=== PATIENT | male | born 1945 | race Caucasian/White ===

== ENCOUNTER → 2018-05-16 | Day surgery (SDC) | payer MEDICARE, MEDICAID ==
[~2018-05-16] VITALS: Ht 167.6 cm; Wt 83.9 kg
[~2018-05-16] MED LIST: ASPI-1159 PO; BACITRACIN 50,000 UNITS/VIAL ONE; BACITRACIN ZINC 15GM TUBE TOP ONE; BETAMETHASONE ACET/BETAMET 30 MG/5 ML VIAL IM ONE; BUPIVACAINE HCL/PF 0.25% (2.5MG/ML) 10ML ONE; CELL2 PO; CLOP75TA16 PO; FENTANYL CITRATE/PF 50MCG/ML 2ML VIAL ONE; GENTAMICIN SULF 40MG/ML 2ML VIAL ONE; GLYCOPYRROLATE 0.2 MG/ML 2ML VIAL ONE; HYDROMORPHONE HCL/PF 2MG/ML CPJ IV PRN; INSU100I7 SQ; LEVVL SQ; LIDOCAINE HCL/PF 1% 10 MG/ML 5ML VIAL ONE; LIP40 PO; METOCLOPRAMIDE HCL 10MG/2ML VIAL ONE; MIDAZOLAM HCL 2 MG/2 ML VIAL ONE; NORMAL SALINE 0.9% 10 ML SYR ONE; ONDANSETRON HCL 4MG/2ML VIAL IV PRN; ONDANSETRON HCL 4MG/2ML VIAL ONE; PRED5TAB48 PO; PROG1 PO; PROPOFOL 200MG/20ML VIAL IV ONE; SODIUM CHLORIDE 0.9% 1,000 ML IV ONE; SODIUM CHLORIDE 0.9% 100 ML ONE; SUCCINYLCHOLINE CHLORIDE 200MG/10ML VIAL IV ONE; VANCOMYCIN HCL 500 MG/VIAL ONE
== END | disposition home or self-care (01) ==
LOC: OR 05:25
PROVIDERS: ATTEND Podiatrist Foot & Ankle Surgery
DX: M86.171 Other acute osteomyelitis, right ankle and foot (principal); T81.89XA Other complications of procedures, not elsewhere classified, initial encounter; Y83.8 Other surgical procedures as the cause of abnormal reaction of the patient, or of later complication, without mention of misadventure at the time of the procedure; I13.10 Hypertensive heart and chronic kidney disease without heart failure, with stage 1 through stage 4 chronic kidney disease, or unspecified chronic kidney disease; E11.22 Type 2 diabetes mellitus with diabetic chronic kidney disease; N18.9 Chronic kidney disease, unspecified; I25.2 Old myocardial infarction; E78.5 Hyperlipidemia, unspecified; Z94.0 Kidney transplant status; Z79.02 Long term (current) use of antithrombotics/antiplatelets; Z79.82 Long term (current) use of aspirin; Z79.4 Long term (current) use of insulin; Z79.899 Other long term (current) drug therapy; Z82.49 Family history of ischemic heart disease and other diseases of the circulatory system; Z83.3 Family history of diabetes mellitus
CPT/HCPCS: 28825; 82962; 87070; 87075; 87077; 87186; 87205; 88304; 88305; 88311; A4216; J0330; J2250; J2405; J2765; J3010; J3370; J3490; J7030; J0702; J1580; J2704; J7050

== ENCOUNTER 2019-12-05 10:42 | Inpatient (IN) | payer MEDICARE, MEDICAID ==
[~2019-12-05] VITALS: Ht 180.3 cm; Wt 79.8 kg
[~2019-12-05 10:42] MED LIST changes: -ASPI-1159 PO; +ASPI-1497 PO; -BACITRACIN 50,000 UNITS/VIAL ONE; -BACITRACIN ZINC 15GM TUBE TOP ONE; -BETAMETHASONE ACET/BETAMET 30 MG/5 ML VIAL IM ONE; -BUPIVACAINE HCL/PF 0.25% (2.5MG/ML) 10ML ONE; -CLOP75TA16 PO; +CLOP75TA4 PO; -FENTANYL CITRATE/PF 50MCG/ML 2ML VIAL ONE; -GENTAMICIN SULF 40MG/ML 2ML VIAL ONE; -GLYCOPYRROLATE 0.2 MG/ML 2ML VIAL ONE; -HYDROMORPHONE HCL/PF 2MG/ML CPJ IV PRN; -LIDOCAINE HCL/PF 1% 10 MG/ML 5ML VIAL ONE; -METOCLOPRAMIDE HCL 10MG/2ML VIAL ONE; -MIDAZOLAM HCL 2 MG/2 ML VIAL ONE; -NORMAL SALINE 0.9% 10 ML SYR ONE; -ONDANSETRON HCL 4MG/2ML VIAL IV PRN; -ONDANSETRON HCL 4MG/2ML VIAL ONE; -PROPOFOL 200MG/20ML VIAL IV ONE; -SODIUM CHLORIDE 0.9% 1,000 ML IV ONE; -SODIUM CHLORIDE 0.9% 100 ML ONE; -SUCCINYLCHOLINE CHLORIDE 200MG/10ML VIAL IV ONE; -VANCOMYCIN HCL 500 MG/VIAL ONE
[2019-12-05 13:15] LABS: HEMATOCRIT 47.1 % (42.0-52.0); HEMOGLOBIN 15.7 g/dL (14.0-18.0); MEAN CORPUSCULAR HEMOGLOBIN 29.8 pg (28.0-32.0); MEAN CORPUSCULAR VOLUME 89.6 fL (80.0-94.0); PLATELET 144 x1000/uL (130-400); RED BLOOD CELL COUNT 5.26 mill/uL (4.7-6.1); RED CELL DISTRIBUTION WIDTH 13.5 % (11.6-14.6)
[2019-12-05 13:19] LABS: CHLORIDE 99 mEq/L (98-107)
[2019-12-05] MEDS ORDERED: ASPIRIN 325MG EC TABLET PO ONE (15:45)
[2019-12-05] MEDS ORDERED: AZITHROMYCIN 500 MG in DEXT 5% WATER 250 ML IV SCH (15:45)
[2019-12-05] MEDS ORDERED: CEFTRIAXONE 1 G PREMIX 50 ML IV ONE (15:45)
[2019-12-05 15:56] LABS: CLARITY URINE CLOUDY (CLEAR); COLOR URINE YELLOW (YELLOW); KETONES URINE TRACE (NEGATIVE); LEUKOCYTE ESTERASE URINE 2+ (NEGATIVE); NITRITE URINE POSITIVE (NEGATIVE); OCCULT BLOOD URINE 3+ (NEGATIVE); PH URINE 5.5 (4.5-8.0); PROTEIN URINE 2+ (NEGATIVE); SPECIFIC GRAVITY URINE 1.022 (1.005-1.030)
[2019-12-05 16:45] LABS: BASOPHILS % 0.2 % (0.0-2.0); EOSINOPHILS % 0.3 % (0.0-5.0); HEMATOCRIT. 42.7 % (42.0-52.0); HEMOGLOBIN. 14.3 g/dL (14.0-18.0); LYMPHOCYTES % 14.1 % (20.0-50.0); MEAN CORPUSCULAR HEMOGLOBIN 29.4 pg (28.0-32.0); MEAN PLATELET VOLUME 8.5 fl (7.4-10.4); MONOCYTES % 8.5 % (2.0-8.0); NEUTROPHILS % 76.9 % (40.0-76.0); PLATELET 160 x1000/uL (130-400); RED BLOOD CELL COUNT 4.85 mill/uL (4.7-6.1); RED CELL DISTRIBUTION WIDTH 13.2 % (11.6-14.6)
[2019-12-05] MEDS ORDERED: SODIUM CHLORIDE 0.9% 250 ML IV ONE (17:00)
[2019-12-05] MEDS ORDERED: MORPHINE SULFATE 4 MG/ML CPJ (NOT FOR IM USE) IV ONE (18:00)
[2019-12-05] MEDS ORDERED: LISINOPRIL 20MG TABLET PO ONE (18:00)
[2019-12-05] MEDS ORDERED: ONDANSETRON HCL 4MG/2ML INJ IV ONE (18:15)
[2019-12-05 21:50] VITALS: BP 191/62
[2019-12-06] VITALS: BP 141/56
[2019-12-06] MEDS ORDERED: CEFTRIAXONE 1 G PREMIX 50 ML IV SCH (02:30)
[2019-12-06] MEDS ORDERED: ACETAMINOPHEN 325MG TABLET PO PRN (02:30)
[2019-12-06] MEDS ORDERED: CLONIDINE 0.2MG TABLET PO PRN (02:30)
[2019-12-06] MEDS ORDERED: DEXTROSE 50% WATER 50ML SYRINGE IV PRN (02:45)
[2019-12-06 04:00] VITALS: BP 164/69
[2019-12-06] MEDS: BLOOD SUGAR DIAGNOSTIC STRIP TEST SCH ×4 (06:17→20:19)
[2019-12-06 06:51] LABS: CHLORIDE 100 mEq/L (98-107)
[2019-12-06 07:13] LABS: BASOPHILS % 0.4 % (0.0-2.0); EOSINOPHILS % 0.2 % (0.0-5.0); HEMATOCRIT. 40.2 % (42.0-52.0); HEMOGLOBIN. 13.6 g/dL (14.0-18.0); LYMPHOCYTES % 16.2 % (20.0-50.0); MEAN CORPUSCULAR HEMOGLOBIN 29.7 pg (28.0-32.0); MEAN CORPUSCULAR VOLUME 87.8 fL (80.0-94.0); MEAN PLATELET VOLUME 8.8 fl (7.4-10.4); MONOCYTES % 9.5 % (2.0-8.0); NEUTROPHILS % 73.7 % (40.0-76.0); PLATELET 137 x1000/uL (130-400); RED BLOOD CELL COUNT 4.58 mill/uL (4.7-6.1); RED CELL DISTRIBUTION WIDTH 13.4 % (11.6-14.6)
[2019-12-06 08:00] VITALS: BP_SYST 129; BP_SYST 149; BP_DIAS 51; BP_DIAS 63
[2019-12-06] MEDS: INSULIN LISPRO 100 UNITS/ML SUBCUT SCH ×4 (08:45→20:20)
[2019-12-06] MEDS: TACROLIMUS 1MG CAPSULE PO SCH ×2 (10:13→10:21)
[2019-12-06] MEDS: CLOPIDOGREL 75MG TABLET PO SCH ×2 (10:13→10:20)
[2019-12-06] MEDS: ASPIRIN 81MG EC TABLET PO SCH ×2 (10:13→10:21)
[2019-12-06] MEDS: SODIUM CHLORIDE 0.9% 1,000 ML IV SCH (10:14)
[2019-12-06] MEDS: MYCOPHENOLATE MOFETIL 250MG CAPSULE PO SCH ×2 (10:20→20:19)
[2019-12-06] MEDS: PREDNISONE 5MG TABLET PO SCH (10:21)
[2019-12-06] MEDS: INSULIN GLARGINE UD 100 UNITS/ML SYR SUBCUT SCH (10:29)
[2019-12-06 12:00] VITALS: BP 132/67
[2019-12-06] MEDS: CEFTRIAXONE 1 G PREMIX 50 ML IV SCH (14:26)
[2019-12-06 16:00] VITALS: BP 131/73
[2019-12-06 20:00] VITALS: BP 136/79
[2019-12-06] MEDS: ATORVASTATIN CALCIUM 40MG TABLET PO SCH (20:19)
[2019-12-07] VITALS: BP 142/76
[2019-12-07] MEDS: SODIUM CHLORIDE 0.9% 1,000 ML IV SCH ×2 (00:11→16:50)
[2019-12-07 04:00] VITALS: BP 130/72
[2019-12-07 06:16] LABS: CHLORIDE 103 mEq/L (98-107)
[2019-12-07 06:29] LABS: BASOPHILS % 0.3 % (0.0-2.0); EOSINOPHILS % 0.4 % (0.0-5.0); HEMATOCRIT. 36.7 % (42.0-52.0); HEMOGLOBIN. 12.5 g/dL (14.0-18.0); LYMPHOCYTES % 20.4 % (20.0-50.0); MEAN CORPUSCULAR HEMOGLOBIN 29.5 pg (28.0-32.0); MEAN PLATELET VOLUME 8.4 fl (7.4-10.4); MONOCYTES % 7.9 % (2.0-8.0); PLATELET 142 x1000/uL (130-400); RED BLOOD CELL COUNT 4.22 mill/uL (4.7-6.1); RED CELL DISTRIBUTION WIDTH 13.3 % (11.6-14.6)
[2019-12-07 06:31] LABS: PHOSPHORUS 1.9 mg/dL (2.5-4.9)
[2019-12-07] MEDS: BLOOD SUGAR DIAGNOSTIC STRIP TEST SCH ×4 (07:40→21:46)
[2019-12-07 08:00] VITALS: BP 129/52
[2019-12-07] MEDS: INSULIN LISPRO 100 UNITS/ML SUBCUT SCH ×4 (08:44→21:46)
[2019-12-07] MEDS ORDERED: POTASSIUM PHOS,M-BASIC-D-BASIC 20 MMOL in DEXT 5% WATER 243.3333 ML IV SCH (09:00)
[2019-12-07] MEDS ORDERED: MAGNESIUM 2 G PREMIX 50 ML IV SCH (09:00)
[2019-12-07] MEDS: PREDNISONE 5MG TABLET PO SCH (10:08)
[2019-12-07] MEDS: MYCOPHENOLATE MOFETIL 250MG CAPSULE PO SCH ×2 (10:08→23:14)
[2019-12-07] MEDS: TACROLIMUS 1MG CAPSULE PO SCH ×2 (10:08→21:46)
[2019-12-07] MEDS: AZITHROMYCIN 500 MG in DEXT 5% WATER 250 ML IV SCH (10:09)
[2019-12-07] MEDS: INSULIN GLARGINE UD 100 UNITS/ML SYR SUBCUT SCH (10:10)
[2019-12-07 12:00] VITALS: BP 159/64
[2019-12-07] MEDS: CEFTRIAXONE 1 G PREMIX 50 ML IV SCH (14:24)
[2019-12-07 16:00] VITALS: BP 153/64
[2019-12-07 20:00] VITALS: BP 146/47
[2019-12-07] MEDS: ATORVASTATIN CALCIUM 40MG TABLET PO SCH (21:46)
[2019-12-08] VITALS: BP 136/50
[2019-12-08 04:00] VITALS: BP 155/65
[2019-12-08] MEDS: BLOOD SUGAR DIAGNOSTIC STRIP TEST SCH ×3 (06:03→17:02)
[2019-12-08 07:17] LABS: CHLORIDE 106 mEq/L (98-107)
[2019-12-08 07:27] LABS: PHOSPHORUS 2.5 mg/dL (2.5-4.9)
[2019-12-08 07:36] LABS: BASOPHILS % 0.4 % (0.0-2.0); EOSINOPHILS % 0.8 % (0.0-5.0); HEMATOCRIT. 35.8 % (42.0-52.0); HEMOGLOBIN. 12.4 g/dL (14.0-18.0); LYMPHOCYTES % 26.2 % (20.0-50.0); MEAN CORPUSCULAR HEMOGLOBIN 30.2 pg (28.0-32.0); MEAN CORPUSCULAR VOLUME 87.2 fL (80.0-94.0); MEAN PLATELET VOLUME 8.4 fl (7.4-10.4); MONOCYTES % 9.9 % (2.0-8.0); NEUTROPHILS % 62.7 % (40.0-76.0); PLATELET 159 x1000/uL (130-400); RED CELL DISTRIBUTION WIDTH 13.3 % (11.6-14.6)
[2019-12-08] MEDS: INSULIN LISPRO 100 UNITS/ML SUBCUT SCH ×3 (07:59→17:35)
[2019-12-08 08:00] VITALS: BP 175/78
[2019-12-08] MEDS: CLOPIDOGREL 75MG TABLET PO SCH (08:31)
[2019-12-08] MEDS: PREDNISONE 5MG TABLET PO SCH (08:31)
[2019-12-08] MEDS: ASPIRIN 81MG EC TABLET PO SCH (08:31)
[2019-12-08] MEDS: TACROLIMUS 1MG CAPSULE PO SCH (08:32)
[2019-12-08] MEDS: MYCOPHENOLATE MOFETIL 250MG CAPSULE PO SCH (08:32)
[2019-12-08] MEDS: AZITHROMYCIN 500 MG in DEXT 5% WATER 250 ML IV SCH (08:50)
[2019-12-08] MEDS ORDERED: POTASSIUM CHLORIDE 20MEQ TABLET SR PO NR (09:44)
[2019-12-08] MEDS ORDERED: LISINOPRIL 20MG TABLET PO SCH (09:45)
[2019-12-08] MEDS: INSULIN GLARGINE UD 100 UNITS/ML SYR SUBCUT SCH (11:03)
[2019-12-08 12:00] VITALS: BP 153/62
[2019-12-08 16:00] VITALS: BP 125/57
[2019-12-08] MEDS: CEFTRIAXONE 1 G PREMIX 50 ML IV SCH (17:02)
[2019-12-08 17:17] VITALS: BP 127/67
== END 2019-12-08 18:20 | disposition home or self-care (01) | DRG 871 ==
LOC: ER 10:42 → 7WST 15:45 → ENRESERV 21:01 → 7WST 12-07 14:58
PROVIDERS: ADMIT Internal Medicine; ATTEND Internal Medicine
DX: A41.9 Sepsis, unspecified organism (principal); J18.9 Pneumonia, unspecified organism; Z94.0 Kidney transplant status; N39.0 Urinary tract infection, site not specified; E11.51 Type 2 diabetes mellitus with diabetic peripheral angiopathy without gangrene; E66.9 Obesity, unspecified; G89.29 Other chronic pain; M54.5 Low back pain; M62.50 Muscle wasting and atrophy, not elsewhere classified, unspecified site; M17.10 Unilateral primary osteoarthritis, unspecified knee; I10 Essential (primary) hypertension; E78.5 Hyperlipidemia, unspecified; Z90.49 Acquired absence of other specified parts of digestive tract; Z91.19 Patient's noncompliance with other medical treatment and regimen; Z68.24 Body mass index [BMI] 24.0-24.9, adult; Z79.82 Long term (current) use of aspirin; Z79.899 Other long term (current) drug therapy; Z79.02 Long term (current) use of antithrombotics/antiplatelets; Z79.52 Long term (current) use of systemic steroids
CPT/HCPCS: 36415; 71045; 80048; 81003; 82962; 83036; 83605; 83735; 83880; 84100; 84484; 85025; 85027; 93005; 96365; 97162; 99285; J0456; J0696; J1815; J2270; J2405; J3475; J3490; J7030; J7050; J7060; J7507; J7512; J7517

== ENCOUNTER 2021-04-08 06:03 | Day surgery (SDC) | payer MEDICARE, MEDICAID ==
[~2021-04-08] VITALS: Ht 167.6 cm; Wt 83.9 kg
[~2021-04-08 06:03] MED LIST changes: +CLOP-31 PO; -CLOP75TA4 PO; +INSASP SUBCUT; -INSU100I7 SQ; -PROG1 PO; +TACR1CAP2 PO
[2021-04-08] MEDS ORDERED: SODIUM CHLORIDE 0.9% 1,000 ML IV SCH (07:30)
[2021-04-08] MEDS ORDERED: BUPIVACAINE HCL 0.5% (5MG/ML) 50ML ONE (07:46)
[2021-04-08] MEDS ORDERED: LIDOCAINE HCL 1% 20ML VIAL (Pyxis) INJ ONE (07:46)
[2021-04-08] MEDS ORDERED: POLYMYXIN B SULFATE 500000 UNITS/VIAL ONE (07:46)
[2021-04-08] MEDS ORDERED: PROPOFOL 200MG/20ML VIAL IV ONE (08:00)
[2021-04-08] MEDS ORDERED: MIDAZOLAM HCL 2 MG/2 ML VIAL ONE (08:00)
[2021-04-08] MEDS ORDERED: SUCCINYLCHOLINE CHLORIDE 200MG/10ML IV ONE (08:02)
[2021-04-08] MEDS ORDERED: VANCOMYCIN HCL 1 GM/VIAL ONE (08:07)
[2021-04-08] MEDS ORDERED: HYDROMORPHONE HCL/PF 2MG/ML (OR) ONE (08:22)
[2021-04-08] MEDS ORDERED: MEPERIDINE HCL/PF 25MG/ML CPJ IV PRN (08:45)
[2021-04-08] MEDS ORDERED: ONDANSETRON HCL 4MG/2ML INJ IV PRN ×2 (08:45→15:45)
[2021-04-08] MEDS ORDERED: LABETALOL 5MG/ML SYR 20 MG/4 ML SYRINGE IV PRN (08:45)
[2021-04-08] MEDS ORDERED: HYDROMORPHONE HCL/PF 2MG/ML CPJ IV PRN (08:45)
[2021-04-08 12:36] VITALS: BP 195/100
== END 2021-04-08 17:00 | disposition home or self-care (01) ==
LOC: OR 06:03
PROVIDERS: ATTEND Podiatrist Foot & Ankle Surgery
DX: M86.172 Other acute osteomyelitis, left ankle and foot (principal); E78.00 Pure hypercholesterolemia, unspecified; I73.9 Peripheral vascular disease, unspecified; I12.9 Hypertensive chronic kidney disease with stage 1 through stage 4 chronic kidney disease, or unspecified chronic kidney disease; E11.22 Type 2 diabetes mellitus with diabetic chronic kidney disease; N18.2 Chronic kidney disease, stage 2 (mild); E66.9 Obesity, unspecified; J44.9 Chronic obstructive pulmonary disease, unspecified; Z79.82 Long term (current) use of aspirin; Z79.4 Long term (current) use of insulin; Z79.899 Other long term (current) drug therapy; Z98.890 Other specified postprocedural states; Z82.49 Family history of ischemic heart disease and other diseases of the circulatory system; Z83.3 Family history of diabetes mellitus
CPT/HCPCS: 28820; 82962; 87070; 87075; 87077; 87186; 87205; 88304; 88311; J0330; J1170; J2175; J2250; J2405; J2704; J3370; J3490

== ENCOUNTER → 2021-06-03 | Day surgery (SDC) | payer MEDICARE, MEDICAID ==
[~2021-06-03] VITALS: Ht 167.6 cm; Wt 86.2 kg
[~2021-06-03] MED LIST changes: +BACITRACIN 15GM TUBE TOP ONE; +BETAMETHASONE ACET/BETAMET 30 MG/5 ML VIAL IM ONE; +BUPIVACAINE HCL/PF 0.5% (5MG/ML) 10ML ONE; -CLOP-31 PO; +CLOP75TA4 PO; +LIDOCAINE HCL 1% 20ML VIAL (Pyxis) INJ ONE; +LISI20TA31 PO; +POLYMYXIN B SULFATE 500000 UNITS/VIAL ONE; +SODIUM CHLORIDE 0.9% 1,000 ML IV SCH; +VANCOMYCIN HCL 1 GM/VIAL ONE
== END | disposition home or self-care (01) ==
LOC: OR 05:09
PROVIDERS: ATTEND Podiatrist Foot & Ankle Surgery
DX: M20.42 Other hammer toe(s) (acquired), left foot (principal); M86.8X7 Other osteomyelitis, ankle and foot; M20.5X2 Other deformities of toe(s) (acquired), left foot; I10 Essential (primary) hypertension; E78.00 Pure hypercholesterolemia, unspecified; E11.9 Type 2 diabetes mellitus without complications; Z79.4 Long term (current) use of insulin; Z79.899 Other long term (current) drug therapy; Z98.890 Other specified postprocedural states
CPT/HCPCS: 28010; 28825; 82962; 87070; 87205; 87426; 88304; 93005; J3370; J3490; J0702

== ENCOUNTER → 2021-08-12 | Day surgery (SDC) | payer MEDICARE, MEDICAID ==
[~2021-08-12] VITALS: Ht 167.6 cm; Wt 86.2 kg
[~2021-08-12] MED LIST changes: -BACITRACIN 15GM TUBE TOP ONE; -BETAMETHASONE ACET/BETAMET 30 MG/5 ML VIAL IM ONE; +CLOP-31 PO; -CLOP75TA4 PO; +GENTAMICIN SULF 40MG/ML 2ML VIAL ONE; -LIDOCAINE HCL 1% 20ML VIAL (Pyxis) INJ ONE; +LIDOCAINE HCL 1% 30ML VIAL (10MG/ML) ONE; -VANCOMYCIN HCL 1 GM/VIAL ONE
== END | disposition home or self-care (01) ==
LOC: OR 05:51
PROVIDERS: ATTEND Podiatrist Foot & Ankle Surgery
DX: M86.8X8 Other osteomyelitis, other site (principal); I10 Essential (primary) hypertension; E11.9 Type 2 diabetes mellitus without complications; E78.00 Pure hypercholesterolemia, unspecified; I73.9 Peripheral vascular disease, unspecified; T81.89XD Other complications of procedures, not elsewhere classified, subsequent encounter; Z79.899 Other long term (current) drug therapy; Z98.890 Other specified postprocedural states; Z79.82 Long term (current) use of aspirin; Z79.84 Long term (current) use of oral hypoglycemic drugs; Z82.49 Family history of ischemic heart disease and other diseases of the circulatory system; Z83.3 Family history of diabetes mellitus
CPT/HCPCS: 11044; 82962; 87070; 87075; 87077; 87186; 87205; 87426; 88305; 88311; J0330; J1580; J2250; J2405; J2704; J3010; J3490; J2765

== ENCOUNTER 2021-08-17 17:13 | Inpatient (IN) | payer MEDICARE, MEDICAID ==
[~2021-08-17] VITALS: Ht 182.9 cm; Wt 85.7 kg
[~2021-08-17 17:13] MED LIST changes: -BUPIVACAINE HCL/PF 0.5% (5MG/ML) 10ML ONE; -GENTAMICIN SULF 40MG/ML 2ML VIAL ONE; -LIDOCAINE HCL 1% 30ML VIAL (10MG/ML) ONE; -POLYMYXIN B SULFATE 500000 UNITS/VIAL ONE; -SODIUM CHLORIDE 0.9% 1,000 ML IV SCH
[2021-08-17] MEDS ORDERED: SODIUM CHLORIDE 0.9% 1000ML BAG (SEPSIS BOLUS) IV ONE (21:45)
[2021-08-17] MEDS ORDERED: CEFTRIAXONE 1 G PREMIX 50 ML IV ONE (22:30)
[2021-08-17] MEDS ORDERED: VANCOMYCIN 1 G PREMIX 200 ML IV ONE (22:30)
[2021-08-17 22:41] LABS: BASOPHILS % 0.7 % (0.0-2.0); EOSINOPHILS % 0.4 % (0.0-5.0); HEMOGLOBIN. 12.4 g/dL (14.0-18.0); LYMPHOCYTES % 25.8 % (20.0-50.0); MEAN CORPUSCULAR HEMOGLOBIN 28.7 pg (28.0-32.0); MEAN CORPUSCULAR VOLUME 87.9 fL (80.0-94.0); MEAN PLATELET VOLUME 7.6 fl (7.4-10.4); MONOCYTES % 11.3 % (2.0-8.0); NEUTROPHILS % 61.8 % (40.0-76.0); PLATELET 330 x1000/uL (130-400); RED BLOOD CELL COUNT 4.33 mill/uL (4.7-6.1); RED CELL DISTRIBUTION WIDTH 13.3 % (11.6-14.6)
[2021-08-17 22:45] LABS: CHLORIDE 97 mEq/L (98-107)
[2021-08-17 22:50] LABS: INR 1.1; PARTIAL THROMBOPLASTIN TIME 33.3 sec (23.4-31.0)
[2021-08-17] MEDS ORDERED: ACETAMINOPHEN 325MG TABLET PO ONE (23:15)
[2021-08-17] MEDS ORDERED: INSULIN REGULAR (HUMULIN R) 300UNITS/3ML VIAL SUBCUT SCH (23:15)
[2021-08-18] VITALS (7 sets, daily range): BP systolic 144–172; BP diastolic 57–83
[2021-08-18 00:01] LABS: CLARITY URINE CLEAR (CLEAR); COLOR URINE YELLOW (YELLOW); KETONES URINE NEGATIVE (NEGATIVE); LEUKOCYTE ESTERASE URINE NEGATIVE (NEGATIVE); NITRITE URINE NEGATIVE (NEGATIVE); OCCULT BLOOD URINE NEGATIVE (NEGATIVE); PH URINE 5.5 (4.5-8.0); PROTEIN URINE NEGATIVE (NEGATIVE); SPECIFIC GRAVITY URINE 1.019 (1.005-1.030)
[2021-08-18] MEDS ORDERED: DEXTROSE 50% WATER 50ML SYRINGE IV PRN (02:30)
[2021-08-18] MEDS ORDERED: TRAMADOL 50MG TABLET PO PRN (02:30)
[2021-08-18] MEDS ORDERED: NALOXONE HCL 0.4 MG/ML 1ML VIAL IV PRN (03:00)
[2021-08-18] MEDS: BLOOD SUGAR DIAGNOSTIC STRIP TEST SCH ×4 (06:21→22:10)
[2021-08-18 08:12] LABS: CHLORIDE 105 mEq/L (98-107)
[2021-08-18] MEDS: INSULIN LISPRO 100 UNITS/ML SUBCUT SCH ×4 (09:02→22:16)
[2021-08-18] MEDS: TACROLIMUS 1MG CAPSULE PO SCH (09:03)
[2021-08-18] MEDS: LISINOPRIL 20MG TABLET PO SCH (09:03)
[2021-08-18] MEDS: CLOPIDOGREL 75MG TABLET PO SCH (09:03)
[2021-08-18 11:18] LABS: BASOPHILS % 0.3 % (0.0-2.0); EOSINOPHILS % 0.8 % (0.0-5.0); HEMATOCRIT. 32.2 % (42.0-52.0); HEMOGLOBIN. 11.1 g/dL (14.0-18.0); LYMPHOCYTES % 18.8 % (20.0-50.0); MEAN CORPUSCULAR HEMOGLOBIN 30.2 pg (28.0-32.0); MEAN CORPUSCULAR VOLUME 87.3 fL (80.0-94.0); MEAN PLATELET VOLUME 7.3 fl (7.4-10.4); MONOCYTES % 9.8 % (2.0-8.0); NEUTROPHILS % 70.3 % (40.0-76.0); PLATELET 283 x1000/uL (130-400); RED BLOOD CELL COUNT 3.69 mill/uL (4.7-6.1); RED CELL DISTRIBUTION WIDTH 13.1 % (11.6-14.6)
[2021-08-18] MEDS: MYCOPHENOLATE MOFETIL 250MG CAPSULE PO SCH (13:28)
[2021-08-18 17:37] LABS: CHLORIDE 102 mEq/L (98-107)
[2021-08-18] MEDS: CEFEPIME 2,000 MG in DEXT 5% WATER 100 ML IV SCH (17:37)
[2021-08-18] MEDS ORDERED: VANCOMYCIN 1250MG in DEXTROSE 5% WATER 250ML IV NR (18:00)
[2021-08-18] MEDS: ATORVASTATIN CALCIUM 40MG TABLET PO SCH (21:04)
[2021-08-18] MEDS ORDERED: INSULIN GLARGINE UD 100 UNITS/ML SYR SUBCUT SCH (22:00)
[2021-08-18] MEDS ORDERED: CEFTRIAXONE 1,000 MG in DEXTROSE 5% WATER 50 ML IV SCH (23:00)
[2021-08-19 01:14] VITALS: BP 142/60
[2021-08-19 04:00] VITALS: BP 154/80
[2021-08-19] MEDS: CEFEPIME 2,000 MG in DEXT 5% WATER 100 ML IV SCH ×2 (04:38→17:24)
[2021-08-19] MEDS: VANCOMYCIN 750 MG PREMIX 150 ML IV SCH ×2 (05:57→19:13)
[2021-08-19] MEDS: BLOOD SUGAR DIAGNOSTIC STRIP TEST SCH ×4 (06:44→21:47)
[2021-08-19 08:00] VITALS: BP 179/72
[2021-08-19 08:42] LABS: BASOPHILS % 0.3 % (0.0-2.0); EOSINOPHILS % 1.6 % (0.0-5.0); HEMATOCRIT. 32.5 % (42.0-52.0); LYMPHOCYTES % 24.1 % (20.0-50.0); MEAN CORPUSCULAR HEMOGLOBIN 29.4 pg (28.0-32.0); MEAN CORPUSCULAR VOLUME 86.9 fL (80.0-94.0); MEAN PLATELET VOLUME 7.4 fl (7.4-10.4); MONOCYTES % 9.4 % (2.0-8.0); NEUTROPHILS % 64.6 % (40.0-76.0); PLATELET 303 x1000/uL (130-400); RED BLOOD CELL COUNT 3.74 mill/uL (4.7-6.1); RED CELL DISTRIBUTION WIDTH 13.3 % (11.6-14.6)
[2021-08-19] MEDS: TACROLIMUS 1MG CAPSULE PO SCH (09:34)
[2021-08-19] MEDS: MYCOPHENOLATE MOFETIL 250MG CAPSULE PO SCH (09:34)
[2021-08-19] MEDS: CLOPIDOGREL 75MG TABLET PO SCH (09:35)
[2021-08-19] MEDS: LISINOPRIL 20MG TABLET PO SCH (09:35)
[2021-08-19] MEDS: INSULIN LISPRO 100 UNITS/ML SUBCUT SCH ×5 (09:37→21:47)
[2021-08-19 12:00] VITALS: BP 164/72
[2021-08-19] MEDS: INSULIN GLARGINE UD 100 UNITS/ML SYR SUBCUT SCH ×2 (12:25→21:46)
[2021-08-19] MEDS: PREDNISONE 5MG TABLET PO SCH (14:14)
[2021-08-19 16:00] VITALS: BP 169/68
[2021-08-19] MEDS: MYCOPHENOLATE MOFETIL 500MG TABLET PO SCH (17:23)
[2021-08-19 20:00] VITALS: BP 154/65
[2021-08-19] MEDS: ATORVASTATIN CALCIUM 40MG TABLET PO SCH (21:45)
[2021-08-20] VITALS: BP 158/79
[2021-08-20 04:00] VITALS: BP 144/67
[2021-08-20] MEDS: CEFEPIME 2,000 MG in DEXT 5% WATER 100 ML IV SCH ×2 (04:41→17:13)
[2021-08-20 05:43] LABS: BASOPHILS % 0.3 % (0.0-2.0); EOSINOPHILS % 0.8 % (0.0-5.0); HEMATOCRIT. 35.4 % (42.0-52.0); HEMOGLOBIN. 11.9 g/dL (14.0-18.0); LYMPHOCYTES % 23.7 % (20.0-50.0); MEAN CORPUSCULAR HEMOGLOBIN 29.1 pg (28.0-32.0); MEAN CORPUSCULAR VOLUME 86.5 fL (80.0-94.0); MEAN PLATELET VOLUME 7.4 fl (7.4-10.4); MONOCYTES % 9.7 % (2.0-8.0); NEUTROPHILS % 65.5 % (40.0-76.0); PLATELET 349 x1000/uL (130-400); RED CELL DISTRIBUTION WIDTH 12.9 % (11.6-14.6)
[2021-08-20 05:48] LABS: CHLORIDE 99 mEq/L (98-107)
[2021-08-20] MEDS: VANCOMYCIN 750 MG PREMIX 150 ML IV SCH (06:42)
[2021-08-20] MEDS: PANTOPRAZOLE 40MG DR TABLET PO SCH (06:42)
[2021-08-20] MEDS: BLOOD SUGAR DIAGNOSTIC STRIP TEST SCH ×4 (06:49→20:50)
[2021-08-20] MEDS: INSULIN LISPRO 100 UNITS/ML SUBCUT SCH ×4 (07:47→21:50)
[2021-08-20 08:00] VITALS: BP 133/58
[2021-08-20] MEDS: TACROLIMUS 1MG CAPSULE PO SCH (09:44)
[2021-08-20] MEDS: MYCOPHENOLATE MOFETIL 500MG TABLET PO SCH ×2 (09:44→17:13)
[2021-08-20] MEDS: CLOPIDOGREL 75MG TABLET PO SCH (09:45)
[2021-08-20] MEDS: LISINOPRIL 20MG TABLET PO SCH (09:45)
[2021-08-20] MEDS: PREDNISONE 5MG TABLET PO SCH (09:45)
[2021-08-20 12:00] VITALS: BP 144/73
[2021-08-20] MEDS: INSULIN GLARGINE UD 100 UNITS/ML SYR SUBCUT SCH ×2 (12:05→22:02)
[2021-08-20] MEDS: VANCOMYCIN 1250MG in DEXTROSE 5% WATER 250ML IV SCH (15:05)
[2021-08-20 16:45] VITALS: BP 149/70
[2021-08-20] MEDS: ATORVASTATIN CALCIUM 40MG TABLET PO SCH (20:50)
[2021-08-21] VITALS: BP 127/69
[2021-08-21] MEDS: VANCOMYCIN 1250MG in DEXTROSE 5% WATER 250ML IV SCH ×2 (01:42→14:37)
[2021-08-21 04:09] VITALS: BP 131/62
[2021-08-21] MEDS: CEFEPIME 2,000 MG in DEXT 5% WATER 100 ML IV SCH ×2 (05:55→17:31)
[2021-08-21] MEDS: PANTOPRAZOLE 40MG DR TABLET PO SCH (05:56)
[2021-08-21] MEDS: BLOOD SUGAR DIAGNOSTIC STRIP TEST SCH ×4 (05:56→20:54)
[2021-08-21 08:00] VITALS: BP 128/56
[2021-08-21] MEDS: PREDNISONE 5MG TABLET PO SCH (09:34)
[2021-08-21] MEDS: LISINOPRIL 20MG TABLET PO SCH (09:34)
[2021-08-21] MEDS: CLOPIDOGREL 75MG TABLET PO SCH (09:35)
[2021-08-21] MEDS: TACROLIMUS 1MG CAPSULE PO SCH (09:35)
[2021-08-21] MEDS: MYCOPHENOLATE MOFETIL 500MG TABLET PO SCH ×2 (09:35→17:47)
[2021-08-21] MEDS: INSULIN LISPRO 100 UNITS/ML SUBCUT SCH ×4 (09:35→20:56)
[2021-08-21] MEDS: INSULIN GLARGINE UD 100 UNITS/ML SYR SUBCUT SCH ×2 (09:36→22:36)
[2021-08-21 12:00] VITALS: BP 147/72
[2021-08-21 16:00] VITALS: BP 126/62
[2021-08-21 20:00] VITALS: BP 155/69
[2021-08-21] MEDS: ATORVASTATIN CALCIUM 40MG TABLET PO SCH (20:54)
[2021-08-22] VITALS: BP 149/68
[2021-08-22] MEDS: VANCOMYCIN 1250MG in DEXTROSE 5% WATER 250ML IV SCH (01:24)
[2021-08-22 04:00] VITALS: BP 141/65
[2021-08-22] MEDS: BLOOD SUGAR DIAGNOSTIC STRIP TEST SCH ×4 (06:12→21:21)
[2021-08-22] MEDS: CEFEPIME 2,000 MG in DEXT 5% WATER 100 ML IV SCH (06:13)
[2021-08-22 06:38] LABS: CHLORIDE 98 mEq/L (98-107)
[2021-08-22 06:43] LABS: BASOPHILS % 0.4 % (0.0-2.0); EOSINOPHILS % 0.9 % (0.0-5.0); HEMATOCRIT. 34.3 % (42.0-52.0); HEMOGLOBIN. 11.8 g/dL (14.0-18.0); MEAN CORPUSCULAR HEMOGLOBIN 29.4 pg (28.0-32.0); MEAN CORPUSCULAR VOLUME 85.3 fL (80.0-94.0); MEAN PLATELET VOLUME 7.3 fl (7.4-10.4); MONOCYTES % 9.5 % (2.0-8.0); NEUTROPHILS % 65.2 % (40.0-76.0); PLATELET 356 x1000/uL (130-400); RED BLOOD CELL COUNT 4.02 mill/uL (4.7-6.1); RED CELL DISTRIBUTION WIDTH 13.2 % (11.6-14.6)
[2021-08-22 06:49] LABS: PHOSPHORUS 2.5 mg/dL (2.5-4.9)
[2021-08-22] MEDS: INSULIN LISPRO 100 UNITS/ML SUBCUT SCH ×4 (07:50→21:43)
[2021-08-22 08:00] VITALS: BP 135/58
[2021-08-22] MEDS ORDERED: ASPIRIN 81MG EC TABLET PO SCH (09:00)
[2021-08-22] MEDS ORDERED: HYDROCODONE/ACETAMINOPHEN 5/325MG TABLET PO PRN (10:30)
[2021-08-22] MEDS: CLOPIDOGREL 75MG TABLET PO SCH (10:59)
[2021-08-22] MEDS: PANTOPRAZOLE 40MG DR TABLET PO SCH (10:59)
[2021-08-22] MEDS: MYCOPHENOLATE MOFETIL 500MG TABLET PO SCH ×2 (10:59→17:15)
[2021-08-22] MEDS: LISINOPRIL 20MG TABLET PO SCH (10:59)
[2021-08-22] MEDS: TACROLIMUS 1MG CAPSULE PO SCH (10:59)
[2021-08-22] MEDS: PREDNISONE 5MG TABLET PO SCH (11:01)
[2021-08-22] MEDS: INSULIN GLARGINE UD 100 UNITS/ML SYR SUBCUT SCH ×2 (11:02→21:47)
[2021-08-22 12:00] VITALS: BP 155/67
[2021-08-22] MEDS ORDERED: VANCOMYCIN 1 G PREMIX 200 ML IV SCH (12:00)
[2021-08-22] MEDS: PIPERACILLIN/TAZOBACTAM 3.375 G in DEXTROSE 5% WATER 50 ML IV SCH ×2 (15:24→21:39)
[2021-08-22 16:00] VITALS: BP 140/63
[2021-08-22] MEDS: ACETAMINOPHEN 325MG TABLET PO PRN (17:15)
[2021-08-22 20:00] VITALS: BP 136/56
[2021-08-22] MEDS: VANCOMYCIN 1 G PREMIX 200 ML IV SCH (20:55)
[2021-08-22] MEDS: ATORVASTATIN CALCIUM 40MG TABLET PO SCH (21:39)
[2021-08-23] VITALS: BP 149/72
[2021-08-23 04:00] VITALS: BP 149/78
[2021-08-23] MEDS: VANCOMYCIN 1 G PREMIX 200 ML IV SCH (04:30)
[2021-08-23] MEDS: BLOOD SUGAR DIAGNOSTIC STRIP TEST SCH ×4 (06:37→21:25)
[2021-08-23] MEDS: PIPERACILLIN/TAZOBACTAM 3.375 G in DEXTROSE 5% WATER 50 ML IV SCH ×3 (06:38→21:35)
[2021-08-23] MEDS: PANTOPRAZOLE 40MG DR TABLET PO SCH (06:38)
[2021-08-23] MEDS: INSULIN LISPRO 100 UNITS/ML SUBCUT SCH ×4 (07:47→21:36)
[2021-08-23 08:00] VITALS: BP_SYST 142; BP_SYST 153; BP_DIAS 68; BP_DIAS 72
[2021-08-23] MEDS: LISINOPRIL 20MG TABLET PO SCH (08:40)
[2021-08-23] MEDS: MYCOPHENOLATE MOFETIL 500MG TABLET PO SCH ×2 (08:41→17:07)
[2021-08-23] MEDS: TACROLIMUS 1MG CAPSULE PO SCH (08:41)
[2021-08-23] MEDS: PREDNISONE 5MG TABLET PO SCH (08:41)
[2021-08-23] MEDS: CLOPIDOGREL 75MG TABLET PO SCH (08:41)
[2021-08-23 09:54] LABS: CHLORIDE 100 mEq/L (98-107)
[2021-08-23] MEDS: INSULIN GLARGINE UD 100 UNITS/ML SYR SUBCUT SCH ×2 (10:30→21:37)
[2021-08-23 12:00] VITALS: BP 142/72
[2021-08-23 16:00] VITALS: BP 133/71
[2021-08-23] MEDS: ACETAMINOPHEN 325MG TABLET PO PRN (17:06)
[2021-08-23] MEDS: VANCOMYCIN 1250MG in DEXTROSE 5% WATER 250ML IV SCH (18:14)
[2021-08-23 20:00] VITALS: BP 123/57
[2021-08-23] MEDS: ATORVASTATIN CALCIUM 40MG TABLET PO SCH (21:35)
[2021-08-24] VITALS: BP 152/67
[2021-08-24 04:00] VITALS: BP 150/73
[2021-08-24] MEDS: VANCOMYCIN 1250MG in DEXTROSE 5% WATER 250ML IV SCH (06:27)
[2021-08-24] MEDS: PIPERACILLIN/TAZOBACTAM 3.375 G in DEXTROSE 5% WATER 50 ML IV SCH (06:27)
[2021-08-24] MEDS: PANTOPRAZOLE 40MG DR TABLET PO SCH (06:28)
[2021-08-24] MEDS: BLOOD SUGAR DIAGNOSTIC STRIP TEST SCH (06:28)
[2021-08-24] MEDS: INSULIN LISPRO 100 UNITS/ML SUBCUT SCH (07:34)
[2021-08-24 08:00] VITALS: BP 159/73
[2021-08-24] MEDS: MYCOPHENOLATE MOFETIL 500MG TABLET PO SCH (09:49)
[2021-08-24] MEDS: PREDNISONE 5MG TABLET PO SCH (09:50)
[2021-08-24] MEDS: CLOPIDOGREL 75MG TABLET PO SCH (09:50)
[2021-08-24] MEDS: LISINOPRIL 20MG TABLET PO SCH (09:50)
[2021-08-24] MEDS: TACROLIMUS 1MG CAPSULE PO SCH (09:55)
[2021-08-24] MEDS: INSULIN GLARGINE UD 100 UNITS/ML SYR SUBCUT SCH (09:56)
[2021-08-24 10:45] VITALS: BP 142/59
[2021-08-25] MEDS ORDERED: FAMOTIDINE 20MG TABLET PO SCH (09:00)
== END 2021-08-24 11:05 | disposition home or self-care (01) | DRG 863 ==
LOC: ER 17:13 → ENRESERV 23:42 → 6WST 08-18 01:00
PROVIDERS: ADMIT Internal Medicine; ATTEND Internal Medicine
DX: T81.40XA Infection following a procedure, unspecified, initial encounter (principal); Z94.0 Kidney transplant status; L03.116 Cellulitis of left lower limb; N39.0 Urinary tract infection, site not specified; E11.51 Type 2 diabetes mellitus with diabetic peripheral angiopathy without gangrene; E11.42 Type 2 diabetes mellitus with diabetic polyneuropathy; E78.00 Pure hypercholesterolemia, unspecified; I10 Essential (primary) hypertension; G89.29 Other chronic pain; M54.50 Low back pain, unspecified; B96.20 Unspecified Escherichia coli [E. coli] as the cause of diseases classified elsewhere; J44.9 Chronic obstructive pulmonary disease, unspecified; Y83.8 Other surgical procedures as the cause of abnormal reaction of the patient, or of later complication, without mention of misadventure at the time of the procedure; M17.10 Unilateral primary osteoarthritis, unspecified knee; Z79.82 Long term (current) use of aspirin; Z79.899 Other long term (current) drug therapy; Z79.4 Long term (current) use of insulin; Z82.49 Family history of ischemic heart disease and other diseases of the circulatory system; Y92.89 Other specified places as the place of occurrence of the external cause; Z89.422 Acquired absence of other left toe(s)
CPT/HCPCS: 36415; 71045; 73620; 73721; 80048; 80053; 80197; 80202; 81003; 82962; 83036; 83605; 83735; 83880; 84100; 84145; 84484; 85025; 85651; 86140; 87077; 87186; 93005; 93923; 93970; 97162; 99285; C1893; J0692; J0696; J1815; J2543; J3370; J7030; J7040; J7060; J7507; J7512; J7517

== ENCOUNTER → 2021-10-27 | Day surgery (SDC) | payer MEDICARE, MEDICAID ==
[~2021-10-27] VITALS: Ht 167.6 cm; Wt 72.5 kg
[~2021-10-27] MED LIST changes: +ACETAMINOPHEN 325MG TABLET PO PRN; +ATROPINE SULFATE 1MG/10ML SYR IV PRN; +FENTANYL CITRATE/PF 50MCG/ML 2ML VIAL ONE; +HEPARIN SODIUM 1,000 UNIT/1ML VIAL IV ONE; +IODIXANOL 320MG/ML 100 ML BOTTLE IV ONE; +IOHEXOL-300 100 ML BOTTLE ONE; +LIDOCAINE HCL 1% 20ML VIAL (Pyxis) INJ ONE; +MIDAZOLAM HCL 2 MG/2 ML VIAL ONE; +ONDANSETRON HCL 4MG/2ML INJ IV PRN
== END | disposition home or self-care (01) ==
LOC: CCL 06:11
PROVIDERS: ATTEND Specialist
DX: R94.39 Abnormal result of other cardiovascular function study (principal); I25.10 Atherosclerotic heart disease of native coronary artery without angina pectoris; I10 Essential (primary) hypertension; E11.9 Type 2 diabetes mellitus without complications; I73.9 Peripheral vascular disease, unspecified; D84.821 Immunodeficiency due to drugs; Z79.82 Long term (current) use of aspirin; Z79.4 Long term (current) use of insulin; Z79.899 Other long term (current) drug therapy; Z95.5 Presence of coronary angioplasty implant and graft; Z89.511 Acquired absence of right leg below knee; Z98.890 Other specified postprocedural states
CPT/HCPCS: 82962; 93458; C1760; C1769; C1887; C1893; C1894; J1644; J2250; J3010; J3490; Q9967

== ENCOUNTER 2021-11-21 09:14 | Inpatient (IN) | payer MEDICARE, MEDICAID ==
[~2021-11-21] VITALS: Ht 172.7 cm; Wt 71.5 kg
[~2021-11-21 09:14] MED LIST changes: -ACETAMINOPHEN 325MG TABLET PO PRN; -ATROPINE SULFATE 1MG/10ML SYR IV PRN; -FENTANYL CITRATE/PF 50MCG/ML 2ML VIAL ONE; -HEPARIN SODIUM 1,000 UNIT/1ML VIAL IV ONE; -IODIXANOL 320MG/ML 100 ML BOTTLE IV ONE; -IOHEXOL-300 100 ML BOTTLE ONE; -LIDOCAINE HCL 1% 20ML VIAL (Pyxis) INJ ONE; -MIDAZOLAM HCL 2 MG/2 ML VIAL ONE; -ONDANSETRON HCL 4MG/2ML INJ IV PRN
[2021-11-21 12:44] LABS: BASOPHILS % 0.3 % (0.0-2.0); EOSINOPHILS % 0.2 % (0.0-5.0); HEMATOCRIT. 32.5 % (42.0-52.0); HEMOGLOBIN. 10.6 g/dL (14.0-18.0); LYMPHOCYTES % 15.2 % (20.0-50.0); MEAN CORPUSCULAR VOLUME 76.7 fL (80.0-94.0); MEAN PLATELET VOLUME 6.2 fl (7.4-10.4); MONOCYTES % 7.5 % (2.0-8.0); NEUTROPHILS % 76.8 % (40.0-76.0); PLATELET 597 x1000/uL (130-400); RED BLOOD CELL COUNT 4.24 mill/uL (4.7-6.1); RED CELL DISTRIBUTION WIDTH 16.1 % (11.6-14.6)
[2021-11-21 12:52] LABS: CHLORIDE 77 mEq/L (98-107)
[2021-11-21 18:14] LABS: CLARITY URINE CLEAR (CLEAR); COLOR URINE DARK YELLOW (YELLOW); KETONES URINE TRACE (NEGATIVE); LEUKOCYTE ESTERASE URINE NEGATIVE (NEGATIVE); NITRITE URINE NEGATIVE (NEGATIVE); OCCULT BLOOD URINE NEGATIVE (NEGATIVE); PH URINE 6.5 (4.5-8.0); PROTEIN URINE 1+ (NEGATIVE)
[2021-11-21] MEDS ORDERED: DEXTROSE 50% WATER 50ML SYRINGE IV PRN (18:15)
[2021-11-21 18:16] LABS: CHLORIDE 76 mEq/L (98-107)
[2021-11-21] MEDS: INSULIN LISPRO 100 UNITS/ML SUBCUT SCH ×2 (18:20→21:30)
[2021-11-21] MEDS: BLOOD SUGAR DIAGNOSTIC STRIP TEST SCH (21:30)
[2021-11-21] MEDS: INSULIN GLARGINE UD 100 UNITS/ML SYR SUBCUT SCH (22:23)
[2021-11-22 00:50] VITALS: BP 125/51
[2021-11-22] MEDS ORDERED: CLONIDINE 0.1MG TABLET PO PRN (01:15)
[2021-11-22] MEDS ORDERED: DOCUSATE SODIUM 100MG CAPSULE PO PRN (01:15)
[2021-11-22] MEDS ORDERED: ONDANSETRON HCL 4MG/2ML INJ IV PRN (01:15)
[2021-11-22] MEDS ORDERED: MAGNESIUM/ALUMINUM HYDROXIDE/SIMETHICONE 30ML UDC PO PRN (01:15)
[2021-11-22] MEDS: SODIUM CHLORIDE 0.9% 1,000 ML IV SCH ×2 (01:24→14:52)
[2021-11-22 04:00] VITALS: BP 131/61
[2021-11-22] MEDS: BLOOD SUGAR DIAGNOSTIC STRIP TEST SCH ×4 (06:55→21:49)
[2021-11-22 08:00] VITALS: BP 123/58
[2021-11-22] MEDS: TACROLIMUS 1MG CAPSULE PO SCH ×2 (08:57→21:49)
[2021-11-22] MEDS: MYCOPHENOLATE MOFETIL 250MG CAPSULE PO SCH ×2 (08:57→21:49)
[2021-11-22] MEDS: INSULIN LISPRO 100 UNITS/ML SUBCUT SCH ×4 (08:58→21:00)
[2021-11-22] MEDS: ENOXAPARIN 40MG/0.4ML SYR SUBCUT SCH (09:02)
[2021-11-22] MEDS: INSULIN GLARGINE UD 100 UNITS/ML SYR SUBCUT SCH ×2 (11:33→21:51)
[2021-11-22 11:50] LABS: BASOPHILS % 0.5 % (0.0-2.0); EOSINOPHILS % 1.1 % (0.0-5.0); HEMATOCRIT. 28.6 % (42.0-52.0); HEMOGLOBIN. 9.7 g/dL (14.0-18.0); LYMPHOCYTES % 23.3 % (20.0-50.0); MEAN CORPUSCULAR HEMOGLOBIN 25.9 pg (28.0-32.0); MEAN CORPUSCULAR VOLUME 76.4 fL (80.0-94.0); MEAN PLATELET VOLUME 6.2 fl (7.4-10.4); NEUTROPHILS % 64.1 % (40.0-76.0); PLATELET 505 x1000/uL (130-400); RED BLOOD CELL COUNT 3.74 mill/uL (4.7-6.1); RED CELL DISTRIBUTION WIDTH 16.6 % (11.6-14.6)
[2021-11-22 12:00] VITALS: BP 154/72
[2021-11-22 12:03] LABS: CHLORIDE 82 mEq/L (98-107)
[2021-11-22 12:08] LABS: PHOSPHORUS 3.1 mg/dL (2.5-4.9)
[2021-11-22 16:00] VITALS: BP 127/63
[2021-11-22 20:00] VITALS: BP 140/57
[2021-11-23] VITALS: BP 146/55
[2021-11-23 04:00] VITALS: BP 160/74
[2021-11-23] MEDS: SODIUM CHLORIDE 0.9% 1,000 ML IV SCH ×2 (04:51→17:46)
[2021-11-23 06:48] LABS: BASOPHILS % 0.7 % (0.0-2.0); EOSINOPHILS % 1.7 % (0.0-5.0); HEMATOCRIT. 28.2 % (42.0-52.0); HEMOGLOBIN. 9.7 g/dL (14.0-18.0); LYMPHOCYTES % 26.6 % (20.0-50.0); MEAN CORPUSCULAR HEMOGLOBIN 26.1 pg (28.0-32.0); MEAN CORPUSCULAR VOLUME 75.8 fL (80.0-94.0); MEAN PLATELET VOLUME 6.3 fl (7.4-10.4); MONOCYTES % 11.6 % (2.0-8.0); NEUTROPHILS % 59.4 % (40.0-76.0); PLATELET 442 x1000/uL (130-400); RED BLOOD CELL COUNT 3.72 mill/uL (4.7-6.1); RED CELL DISTRIBUTION WIDTH 15.9 % (11.6-14.6)
[2021-11-23 07:09] LABS: CHLORIDE 90 mEq/L (98-107)
[2021-11-23] MEDS: BLOOD SUGAR DIAGNOSTIC STRIP TEST SCH ×4 (07:20→21:33)
[2021-11-23 07:24] LABS: PHOSPHORUS 3.1 mg/dL (2.5-4.9)
[2021-11-23 07:28] LABS: T4 FREE 1.35 ng/dL (0.76-1.46)
[2021-11-23] MEDS: INSULIN LISPRO 100 UNITS/ML SUBCUT SCH ×4 (07:50→21:35)
[2021-11-23 08:00] VITALS: BP 144/69
[2021-11-23] MEDS: MYCOPHENOLATE MOFETIL 250MG CAPSULE PO SCH ×2 (09:58→21:33)
[2021-11-23] MEDS: TACROLIMUS 1MG CAPSULE PO SCH ×2 (09:58→21:33)
[2021-11-23] MEDS: ENOXAPARIN 40MG/0.4ML SYR SUBCUT SCH (09:59)
[2021-11-23] MEDS: INSULIN GLARGINE UD 100 UNITS/ML SYR SUBCUT SCH ×2 (10:01→21:36)
[2021-11-23 12:00] VITALS: BP 135/72
[2021-11-23] MEDS: AMLODIPINE 5MG TABLET PO SCH (15:05)
[2021-11-23 16:00] VITALS: BP 129/77
[2021-11-23 20:00] VITALS: BP 125/47
[2021-11-24 00:13] VITALS: BP 149/63
[2021-11-24 04:00] VITALS: BP 166/75
[2021-11-24 06:33] LABS: BASOPHILS % 0.7 % (0.0-2.0); EOSINOPHILS % 1.9 % (0.0-5.0); HEMATOCRIT. 28.8 % (42.0-52.0); HEMOGLOBIN. 9.9 g/dL (14.0-18.0); LYMPHOCYTES % 37.1 % (20.0-50.0); MEAN CORPUSCULAR HEMOGLOBIN 26.1 pg (28.0-32.0); MEAN CORPUSCULAR VOLUME 76.2 fL (80.0-94.0); MEAN PLATELET VOLUME 6.3 fl (7.4-10.4); MONOCYTES % 10.6 % (2.0-8.0); NEUTROPHILS % 49.7 % (40.0-76.0); PLATELET 420 x1000/uL (130-400); RED BLOOD CELL COUNT 3.79 mill/uL (4.7-6.1); RED CELL DISTRIBUTION WIDTH 16.2 % (11.6-14.6)
[2021-11-24 06:49] LABS: CHLORIDE 92 mEq/L (98-107)
[2021-11-24] MEDS: BLOOD SUGAR DIAGNOSTIC STRIP TEST SCH ×4 (07:41→21:35)
[2021-11-24] MEDS: INSULIN LISPRO 100 UNITS/ML SUBCUT SCH ×4 (07:41→21:36)
[2021-11-24 08:00] VITALS: BP 139/53
[2021-11-24] MEDS: AMLODIPINE 5MG TABLET PO SCH (09:18)
[2021-11-24] MEDS: MYCOPHENOLATE MOFETIL 250MG CAPSULE PO SCH ×2 (09:18→21:30)
[2021-11-24] MEDS: TACROLIMUS 1MG CAPSULE PO SCH ×2 (09:19→21:31)
[2021-11-24] MEDS: ENOXAPARIN 40MG/0.4ML SYR SUBCUT SCH (09:19)
[2021-11-24] MEDS: INSULIN GLARGINE UD 100 UNITS/ML SYR SUBCUT SCH ×2 (09:19→21:35)
[2021-11-24] MEDS ORDERED: MAGNESIUM 2 G PREMIX 50 ML IV NR (11:00)
[2021-11-24 12:00] VITALS: BP 149/61
[2021-11-24 16:00] VITALS: BP 134/62
[2021-11-24 20:00] VITALS: BP 132/63
[2021-11-24] MEDS: ACETAMINOPHEN 325MG TABLET PO PRN (21:31)
[2021-11-25] VITALS: BP 135/64
[2021-11-25 04:00] VITALS: BP 145/64
[2021-11-25 06:55] LABS: HEMATOCRIT. 27.1 % (42.0-52.0); HEMOGLOBIN. 9.1 g/dL (14.0-18.0); MEAN CORPUSCULAR HEMOGLOBIN 25.8 pg (28.0-32.0); MEAN CORPUSCULAR VOLUME 76.5 fL (80.0-94.0); MEAN PLATELET VOLUME 6.2 fl (7.4-10.4); PLATELET 417 x1000/uL (130-400); RED BLOOD CELL COUNT 3.54 mill/uL (4.7-6.1); RED CELL DISTRIBUTION WIDTH 16.7 % (11.6-14.6)
[2021-11-25] MEDS: INSULIN LISPRO 100 UNITS/ML SUBCUT SCH ×4 (07:36→23:29)
[2021-11-25] MEDS: BLOOD SUGAR DIAGNOSTIC STRIP TEST SCH ×4 (07:36→21:00)
[2021-11-25 07:58] LABS: CHLORIDE 89 mEq/L (98-107)
[2021-11-25 08:00] VITALS: BP 115/74
[2021-11-25 08:05] LABS: PHOSPHORUS 3.1 mg/dL (2.5-4.9)
[2021-11-25] MEDS: TACROLIMUS 1MG CAPSULE PO SCH ×2 (08:51→20:47)
[2021-11-25] MEDS: LEVOTHYROXINE SODIUM 50MCG TABLET PO SCH (08:52)
[2021-11-25] MEDS: MYCOPHENOLATE MOFETIL 250MG CAPSULE PO SCH ×2 (08:52→20:45)
[2021-11-25] MEDS: AMLODIPINE 5MG TABLET PO SCH (08:52)
[2021-11-25] MEDS: ENOXAPARIN 40MG/0.4ML SYR SUBCUT SCH (08:53)
[2021-11-25] MEDS: INSULIN GLARGINE UD 100 UNITS/ML SYR SUBCUT SCH ×2 (08:54→23:28)
[2021-11-25 12:00] VITALS: BP 136/54
[2021-11-25] MEDS: SODIUM CHLORIDE 0.9% 1,000 ML IV SCH ×3 (12:31→23:30)
[2021-11-25 14:29] LABS: PLATELET ESTIMATE INCREASED
[2021-11-25 16:00] VITALS: BP 155/62
[2021-11-25] MEDS ORDERED: VANCOMYCIN 1.25GM PMX (XELLIA) 250 ML IV SCH (16:00)
[2021-11-25 20:00] VITALS: BP 128/59
[2021-11-25] MEDS: HYDROCORTISONE SOD SUCCINATE 100 MG/2 ML VIAL IV SCH (20:45)
[2021-11-26] VITALS: BP 137/60
[2021-11-26 04:00] VITALS: BP 142/67
[2021-11-26 06:02] LABS: BASOPHILS % 0.2 % (0.0-2.0); HEMATOCRIT. 28.4 % (42.0-52.0); HEMOGLOBIN. 9.5 g/dL (14.0-18.0); LYMPHOCYTES % 21.4 % (20.0-50.0); MEAN CORPUSCULAR HEMOGLOBIN 25.8 pg (28.0-32.0); MEAN CORPUSCULAR VOLUME 77.3 fL (80.0-94.0); MEAN PLATELET VOLUME 6.4 fl (7.4-10.4); NEUTROPHILS % 75.4 % (40.0-76.0); PLATELET 367 x1000/uL (130-400); RED BLOOD CELL COUNT 3.67 mill/uL (4.7-6.1); RED CELL DISTRIBUTION WIDTH 16.7 % (11.6-14.6)
[2021-11-26 06:27] LABS: CHLORIDE 97 mEq/L (98-107)
[2021-11-26] MEDS: SODIUM CHLORIDE 0.9% 1,000 ML IV SCH ×2 (06:27→18:17)
[2021-11-26] MEDS: VANCOMYCIN 750MG PREMIX 150 ML IV SCH ×2 (06:30→18:17)
[2021-11-26] MEDS: HYDROCORTISONE SOD SUCCINATE 100 MG/2 ML VIAL IV SCH ×3 (06:30→21:23)
[2021-11-26] MEDS: LEVOTHYROXINE SODIUM 50MCG TABLET PO SCH (06:49)
[2021-11-26] MEDS: BLOOD SUGAR DIAGNOSTIC STRIP TEST SCH ×4 (06:49→20:47)
[2021-11-26] MEDS ORDERED: INSULIN LISPRO 100 UNITS/ML SUBCUT SCH ×2 (07:20→17:20)
[2021-11-26] MEDS: INSULIN LISPRO 100 UNITS/ML SUBCUT SCH ×5 (07:20→17:20)
[2021-11-26 08:00] VITALS: BP 129/52
[2021-11-26] MEDS ORDERED: SODIUM CHLORIDE 1000MG TABLET PO SCH (09:00)
[2021-11-26] MEDS: ENOXAPARIN 40MG/0.4ML SYR SUBCUT SCH (09:16)
[2021-11-26] MEDS: AMLODIPINE 5MG TABLET PO SCH (09:16)
[2021-11-26] MEDS: MYCOPHENOLATE MOFETIL 250MG CAPSULE PO SCH ×2 (09:16→20:47)
[2021-11-26] MEDS: TACROLIMUS 1MG CAPSULE PO SCH ×2 (09:17→20:47)
[2021-11-26 12:00] VITALS: BP 149/73
[2021-11-26 12:52] LABS: HEPATITIS B SURFACE ANTIGEN NEGATIVE
[2021-11-26] MEDS: ACETAMINOPHEN 325MG TABLET PO PRN (14:57)
[2021-11-26 16:00] VITALS: BP 149/65
[2021-11-26] MEDS: INSULIN LISPRO (LOW DOSE) 100 UNITS/ML SUBCUT SCH (18:16)
[2021-11-26 20:00] VITALS: BP 142/69
[2021-11-26] MEDS: INSULIN GLARGINE UD 100 UNITS/ML SYR SUBCUT SCH (21:27)
[2021-11-26] MEDS ORDERED: INSULIN GLARGINE UD 100 UNITS/ML SYR SUBCUT SCH (22:00)
[2021-11-27] VITALS: BP 136/70
[2021-11-27] MEDS: SODIUM CHLORIDE 0.9% 1,000 ML IV SCH ×3 (01:44→22:09)
[2021-11-27 03:38] VITALS: BP 125/62
[2021-11-27 05:51] LABS: BASOPHILS % 0.1 % (0.0-2.0); HEMOGLOBIN. 8.7 g/dL (14.0-18.0); LYMPHOCYTES % 20.8 % (20.0-50.0); MEAN CORPUSCULAR HEMOGLOBIN 25.8 pg (28.0-32.0); MEAN CORPUSCULAR VOLUME 77.1 fL (80.0-94.0); MEAN PLATELET VOLUME 6.4 fl (7.4-10.4); MONOCYTES % 5.6 % (2.0-8.0); NEUTROPHILS % 73.5 % (40.0-76.0); PLATELET 334 x1000/uL (130-400); RED BLOOD CELL COUNT 3.37 mill/uL (4.7-6.1); RED CELL DISTRIBUTION WIDTH 16.4 % (11.6-14.6)
[2021-11-27 06:19] LABS: CHLORIDE 99 mEq/L (98-107)
[2021-11-27] MEDS: VANCOMYCIN 750MG PREMIX 150 ML IV SCH (06:21)
[2021-11-27] MEDS: LEVOTHYROXINE SODIUM 50MCG TABLET PO SCH (06:21)
[2021-11-27 06:26] LABS: VANCOMYCIN TROUGH 9.5 ug/mL (5.0-10.0)
[2021-11-27] MEDS: BLOOD SUGAR DIAGNOSTIC STRIP TEST SCH ×4 (06:33→21:00)
[2021-11-27 08:00] VITALS: BP 138/66
[2021-11-27] MEDS ORDERED: IOHEXOL-350 100 ML BOTTLE ONE (09:32)
[2021-11-27] MEDS: AMLODIPINE 5MG TABLET PO SCH (09:32)
[2021-11-27] MEDS: MYCOPHENOLATE MOFETIL 250MG CAPSULE PO SCH ×2 (09:32→22:08)
[2021-11-27] MEDS: TACROLIMUS 1MG CAPSULE PO SCH ×2 (09:32→22:08)
[2021-11-27] MEDS: ENOXAPARIN 40MG/0.4ML SYR SUBCUT SCH (09:33)
[2021-11-27] MEDS: PREDNISONE 5MG TABLET PO SCH (09:35)
[2021-11-27] MEDS: INSULIN LISPRO (LOW DOSE) 100 UNITS/ML SUBCUT SCH ×3 (09:39→17:20)
[2021-11-27] MEDS: INSULIN LISPRO 100 UNITS/ML SUBCUT SCH ×3 (09:40→18:34)
[2021-11-27] MEDS ORDERED: MAGNESIUM 2 G PREMIX 50 ML IV SCH (10:00)
[2021-11-27 12:00] VITALS: BP 115/52
[2021-11-27 13:06] LABS: THYROID PEROXIDASE ANTIBODY < 8 IU/mL (0-34)
[2021-11-27 15:30] VITALS: BP 123/44
[2021-11-27] MEDS: VANCOMYCIN 1GM PMX (XELLIA) 200 ML IV SCH (18:17)
[2021-11-27 20:00] VITALS: BP 125/58
[2021-11-27] MEDS: INSULIN GLARGINE UD 100 UNITS/ML SYR SUBCUT SCH (22:09)
[2021-11-28] VITALS: BP 150/60
[2021-11-28 04:00] VITALS: BP 138/58
[2021-11-28 05:33] LABS: BASOPHILS % 0.5 % (0.0-2.0); EOSINOPHILS % 0.7 % (0.0-5.0); HEMATOCRIT. 29.6 % (42.0-52.0); HEMOGLOBIN. 9.8 g/dL (14.0-18.0); LYMPHOCYTES % 38.7 % (20.0-50.0); MEAN CORPUSCULAR HEMOGLOBIN 25.9 pg (28.0-32.0); MEAN CORPUSCULAR VOLUME 77.9 fL (80.0-94.0); MEAN PLATELET VOLUME 6.3 fl (7.4-10.4); MONOCYTES % 8.4 % (2.0-8.0); NEUTROPHILS % 51.7 % (40.0-76.0); PLATELET 368 x1000/uL (130-400); RED CELL DISTRIBUTION WIDTH 16.7 % (11.6-14.6)
[2021-11-28 05:50] LABS: CHLORIDE 103 mEq/L (98-107)
[2021-11-28 05:55] LABS: PHOSPHORUS 2.7 mg/dL (2.5-4.9)
[2021-11-28 05:58] LABS: TOTAL IRON BINDING CAPACITY 199 ug/dL (250-450)
[2021-11-28] MEDS: LEVOTHYROXINE SODIUM 50MCG TABLET PO SCH (06:25)
[2021-11-28] MEDS: VANCOMYCIN 1GM PMX (XELLIA) 200 ML IV SCH ×2 (06:25→18:27)
[2021-11-28] MEDS: INSULIN LISPRO (LOW DOSE) 100 UNITS/ML SUBCUT SCH (07:20)
[2021-11-28] MEDS: BLOOD SUGAR DIAGNOSTIC STRIP TEST SCH ×4 (07:26→21:44)
[2021-11-28 08:00] VITALS: BP 149/69
[2021-11-28] MEDS ORDERED: MAGNESIUM 2 G PREMIX 50 ML IV NR (09:00)
[2021-11-28] MEDS: MYCOPHENOLATE MOFETIL 250MG CAPSULE PO SCH ×2 (09:04→21:42)
[2021-11-28] MEDS: PREDNISONE 5MG TABLET PO SCH (09:04)
[2021-11-28] MEDS: TACROLIMUS 1MG CAPSULE PO SCH ×2 (09:04→21:44)
[2021-11-28] MEDS: AMLODIPINE 5MG TABLET PO SCH (09:05)
[2021-11-28] MEDS: ENOXAPARIN 40MG/0.4ML SYR SUBCUT SCH (09:06)
[2021-11-28] MEDS: INSULIN LISPRO 100 UNITS/ML SUBCUT SCH ×5 (09:08→18:29)
[2021-11-28] MEDS: ACETAMINOPHEN 325MG TABLET PO PRN (09:26)
[2021-11-28 12:00] VITALS: BP 142/57
[2021-11-28 16:00] VITALS: BP 136/69
[2021-11-28 20:00] VITALS: BP 104/56
[2021-11-28] MEDS ORDERED: INSULIN GLARGINE UD 100 UNITS/ML SYR SUBCUT SCH (22:00)
[2021-11-29] VITALS: BP 161/80
[2021-11-29 04:00] VITALS: BP 157/70
[2021-11-29] MEDS: VANCOMYCIN 1GM PMX (XELLIA) 200 ML IV SCH ×2 (06:17→18:02)
[2021-11-29] MEDS: LEVOTHYROXINE SODIUM 50MCG TABLET PO SCH (06:18)
[2021-11-29 06:43] LABS: BASOPHILS % 0.5 % (0.0-2.0); HEMATOCRIT. 29.5 % (42.0-52.0); HEMOGLOBIN. 9.7 g/dL (14.0-18.0); LYMPHOCYTES % 45.8 % (20.0-50.0); MEAN CORPUSCULAR HEMOGLOBIN 25.6 pg (28.0-32.0); MEAN CORPUSCULAR VOLUME 77.9 fL (80.0-94.0); MEAN PLATELET VOLUME 6.3 fl (7.4-10.4); MONOCYTES % 10.6 % (2.0-8.0); NEUTROPHILS % 42.1 % (40.0-76.0); PLATELET 334 x1000/uL (130-400); RED BLOOD CELL COUNT 3.79 mill/uL (4.7-6.1); RED CELL DISTRIBUTION WIDTH 16.5 % (11.6-14.6)
[2021-11-29] MEDS: INSULIN LISPRO 100 UNITS/ML SUBCUT SCH ×7 (07:20→19:35)
[2021-11-29 07:49] LABS: CHLORIDE 103 mEq/L (98-107)
[2021-11-29] MEDS: BLOOD SUGAR DIAGNOSTIC STRIP TEST SCH ×4 (07:49→21:00)
[2021-11-29 08:00] VITALS: BP 125/55
[2021-11-29] MEDS: PREDNISONE 5MG TABLET PO SCH (09:22)
[2021-11-29] MEDS: MYCOPHENOLATE MOFETIL 250MG CAPSULE PO SCH ×2 (09:22→21:15)
[2021-11-29] MEDS: TACROLIMUS 1MG CAPSULE PO SCH ×2 (09:22→21:17)
[2021-11-29] MEDS: ENOXAPARIN 40MG/0.4ML SYR SUBCUT SCH (09:23)
[2021-11-29] MEDS: AMLODIPINE 5MG TABLET PO SCH (09:26)
[2021-11-29 12:00] VITALS: BP 124/60
[2021-11-29] MEDS ORDERED: MAGNESIUM 2 G PREMIX 50 ML IV NR (12:00)
[2021-11-29] MEDS: MAGNESIUM OXIDE 400MG TABLET PO SCH (13:29)
[2021-11-29 16:00] VITALS: BP 132/59
[2021-11-29] MEDS: ACETAMINOPHEN 325MG TABLET PO PRN (16:57)
[2021-11-29 20:00] VITALS: BP 135/56
[2021-11-29] MEDS: PIPERACILLIN/TAZOBACTAM 3.375 G in DEXTROSE 5% WATER 50 ML IV SCH (21:16)
[2021-11-29] MEDS: INSULIN GLARGINE UD 100 UNITS/ML SYR SUBCUT SCH (22:00)
[2021-11-30] VITALS (10 sets, daily range): BP systolic 123–154; BP diastolic 64–83
[2021-11-30] MEDS: VANCOMYCIN 1GM PMX (XELLIA) 200 ML IV SCH ×2 (06:15→20:51)
[2021-11-30] MEDS: PIPERACILLIN/TAZOBACTAM 3.375 G in DEXTROSE 5% WATER 50 ML IV SCH ×3 (06:15→23:18)
[2021-11-30] MEDS: SODIUM CHLORIDE 0.45% 1,000 ML IV SCH ×2 (06:16→20:33)
[2021-11-30] MEDS: BLOOD SUGAR DIAGNOSTIC STRIP TEST SCH ×4 (06:44→20:33)
[2021-11-30] MEDS: INSULIN LISPRO 100 UNITS/ML SUBCUT SCH ×6 (07:20→17:33)
[2021-11-30 08:09] LABS: BASOPHILS % 0.6 % (0.0-2.0); EOSINOPHILS % 1.9 % (0.0-5.0); HEMATOCRIT. 30.9 % (42.0-52.0); HEMOGLOBIN. 10.1 g/dL (14.0-18.0); MEAN CORPUSCULAR HEMOGLOBIN 25.5 pg (28.0-32.0); MEAN CORPUSCULAR VOLUME 78.1 fL (80.0-94.0); MEAN PLATELET VOLUME 6.3 fl (7.4-10.4); MONOCYTES % 10.5 % (2.0-8.0); PLATELET 325 x1000/uL (130-400); RED BLOOD CELL COUNT 3.96 mill/uL (4.7-6.1); RED CELL DISTRIBUTION WIDTH 16.8 % (11.6-14.6)
[2021-11-30 08:12] LABS: CHLORIDE 101 mEq/L (98-107)
[2021-11-30] MEDS: TACROLIMUS 1MG CAPSULE PO SCH ×2 (08:12→20:32)
[2021-11-30] MEDS: MYCOPHENOLATE MOFETIL 250MG CAPSULE PO SCH ×2 (08:12→20:45)
[2021-11-30] MEDS: PREDNISONE 5MG TABLET PO SCH (08:12)
[2021-11-30] MEDS: LEVOTHYROXINE SODIUM 50MCG TABLET PO SCH (08:12)
[2021-11-30] MEDS: MAGNESIUM OXIDE 400MG TABLET PO SCH (08:12)
[2021-11-30] MEDS: AMLODIPINE 5MG TABLET PO SCH (08:13)
[2021-11-30] MEDS ORDERED: HEPARIN SODIUM 1,000 UNIT/1ML VIAL IV ONE (08:23)
[2021-11-30] MEDS ORDERED: IODIXANOL 320MG/ML 100 ML BOTTLE IV ONE (10:06)
[2021-11-30] MEDS ORDERED: LIDOCAINE HCL 1% 20ML VIAL (Pyxis) INJ ONE (10:06)
[2021-11-30] MEDS ORDERED: MIDAZOLAM HCL 2 MG/2 ML VIAL ONE (10:35)
[2021-11-30] MEDS ORDERED: FENTANYL CITRATE/PF 50MCG/ML 2ML VIAL ONE (10:35)
[2021-11-30] MEDS ORDERED: IOHEXOL-300 100 ML BOTTLE ONE (11:52)
[2021-11-30] MEDS ORDERED: CLOPIDOGREL 75MG TABLET ONE (12:18)
[2021-11-30] MEDS ORDERED: ASPIRIN 325MG TABLET ONE (12:19)
[2021-11-30] MEDS ORDERED: DEXTROSE 50% WATER 50ML SYRINGE IV PRN (16:00)
[2021-11-30] MEDS ORDERED: PIPERACILLIN/TAZOBACTAM 3.375 G in DEXTROSE 5% WATER 50 ML IV SCH (16:45)
[2021-11-30] MEDS ORDERED: MYCOPHENOLATE MOFETIL 250MG CAPSULE PO SCH (17:00)
[2021-11-30] MEDS: ACETAMINOPHEN 325MG TABLET PO PRN (20:51)
[2021-11-30] MEDS ORDERED: ATORVASTATIN CALCIUM 40MG TABLET PO SCH (21:00)
[2021-11-30] MEDS: INSULIN GLARGINE UD 100 UNITS/ML SYR SUBCUT SCH (22:41)
[2021-12-01] VITALS (8 sets, daily range): BP systolic 129–165; BP diastolic 64–80
[2021-12-01] MEDS: LEVOTHYROXINE SODIUM 50MCG TABLET PO SCH (06:08)
[2021-12-01] MEDS: BLOOD SUGAR DIAGNOSTIC STRIP TEST SCH ×2 (06:15→12:01)
[2021-12-01] MEDS: PIPERACILLIN/TAZOBACTAM 3.375 G in DEXTROSE 5% WATER 50 ML IV SCH (06:18)
[2021-12-01 06:40] LABS: CHLORIDE 96 mEq/L (98-107)
[2021-12-01 06:49] LABS: BASOPHILS % 0.5 % (0.0-2.0); EOSINOPHILS % 2.8 % (0.0-5.0); HEMATOCRIT. 29.6 % (42.0-52.0); HEMOGLOBIN. 9.8 g/dL (14.0-18.0); LYMPHOCYTES % 37.8 % (20.0-50.0); MEAN CORPUSCULAR HEMOGLOBIN 25.8 pg (28.0-32.0); MEAN CORPUSCULAR VOLUME 77.5 fL (80.0-94.0); MEAN PLATELET VOLUME 6.3 fl (7.4-10.4); MONOCYTES % 8.1 % (2.0-8.0); NEUTROPHILS % 50.8 % (40.0-76.0); PLATELET 303 x1000/uL (130-400); RED BLOOD CELL COUNT 3.82 mill/uL (4.7-6.1)
[2021-12-01 06:50] LABS: PHOSPHORUS 3.5 mg/dL (2.5-4.9)
[2021-12-01] MEDS: INSULIN LISPRO 100 UNITS/ML SUBCUT SCH ×4 (06:50→11:50)
[2021-12-01] MEDS ORDERED: LISINOPRIL 20MG TABLET PO SCH (09:00)
[2021-12-01] MEDS ORDERED: TACROLIMUS 1MG CAPSULE PO SCH (09:00)
[2021-12-01] MEDS ORDERED: CLOPIDOGREL 75MG TABLET PO SCH ×2 (09:00→09:15)
[2021-12-01] MEDS: TACROLIMUS 1MG CAPSULE PO SCH (09:23)
[2021-12-01] MEDS: PREDNISONE 5MG TABLET PO SCH (09:23)
[2021-12-01] MEDS: AMLODIPINE 5MG TABLET PO SCH (09:24)
[2021-12-01] MEDS: MAGNESIUM OXIDE 400MG TABLET PO SCH (09:24)
[2021-12-01] MEDS: MYCOPHENOLATE MOFETIL 250MG CAPSULE PO SCH (09:35)
[2021-12-01] MEDS: SODIUM CHLORIDE 0.45% 1,000 ML IV SCH (10:36)
[2021-12-01] MEDS ORDERED: MAGNESIUM 1 G PREMIX 100 ML IV NR (11:00)
[2021-12-02 09:06] LABS: THYROID PEROXIDASE ANTIBODY < 8 IU/mL (0-34)
[2021-12-05] MEDS ORDERED: ASPIRIN 81MG EC TABLET PO SCH (09:00)
[2021-12-07 07:08] LABS: ALDOSTERONE 10.3 ng/dL (0.0-30.0)
== END 2021-12-01 14:00 | disposition home health service (06) | DRG 516 ==
LOC: ER 09:14 → 6WST 18:06 → ENRESERV 23:33 → 6WST 11-22 00:30 → 3WST 11-30 16:50
PROVIDERS: ADMIT Internal Medicine; ATTEND Internal Medicine
PROC: 047L3DZ Dilation of Left Femoral Artery with Intraluminal Device, Percutaneous Approach (ICD-10-PCS; principal; 2021-11-30)
PROC: B41GYZZ Fluoroscopy of Left Lower Extremity Arteries using Other Contrast (ICD-10-PCS; 2021-11-30)
DX: T87.89 Other complications of amputation stump (principal); E87.1 Hypo-osmolality and hyponatremia; I13.0 Hypertensive heart and chronic kidney disease with heart failure and stage 1 through stage 4 chronic kidney disease, or unspecified chronic kidney disease; I69.354 Hemiplegia and hemiparesis following cerebral infarction affecting left non-dominant side; Z94.0 Kidney transplant status; L03.116 Cellulitis of left lower limb; M31.9 Necrotizing vasculopathy, unspecified; E11.52 Type 2 diabetes mellitus with diabetic peripheral angiopathy with gangrene; I70.263 Atherosclerosis of native arteries of extremities with gangrene, bilateral legs; I70.92 Chronic total occlusion of artery of the extremities; Y92.89 Other specified places as the place of occurrence of the external cause; E11.40 Type 2 diabetes mellitus with diabetic neuropathy, unspecified; E11.22 Type 2 diabetes mellitus with diabetic chronic kidney disease; N18.9 Chronic kidney disease, unspecified; E87.5 Hyperkalemia; E11.65 Type 2 diabetes mellitus with hyperglycemia; E78.00 Pure hypercholesterolemia, unspecified; I25.10 Atherosclerotic heart disease of native coronary artery without angina pectoris; J44.9 Chronic obstructive pulmonary disease, unspecified; E78.5 Hyperlipidemia, unspecified; E03.9 Hypothyroidism, unspecified; M47.816 Spondylosis without myelopathy or radiculopathy, lumbar region; D64.9 Anemia, unspecified; E11.649 Type 2 diabetes mellitus with hypoglycemia without coma; E83.42 Hypomagnesemia; G89.29 Other chronic pain; Y83.5 Amputation of limb(s) as the cause of abnormal reaction of the patient, or of later complication, without mention of misadventure at the time of the procedure; T38.3X5A Adverse effect of insulin and oral hypoglycemic [antidiabetic] drugs, initial encounter; Z20.822 Contact with and (suspected) exposure to COVID-19; T38.0X5A Adverse effect of glucocorticoids and synthetic analogues, initial encounter; I50.9 Heart failure, unspecified; Z79.4 Long term (current) use of insulin; Z79.899 Other long term (current) drug therapy; Z82.49 Family history of ischemic heart disease and other diseases of the circulatory system; Z90.49 Acquired absence of other specified parts of digestive tract; Z95.5 Presence of coronary angioplasty implant and graft; I25.2 Old myocardial infarction; Z99.2 Dependence on renal dialysis; Z89.612 Acquired absence of left leg above knee; Z79.82 Long term (current) use of aspirin; Z79.02 Long term (current) use of antithrombotics/antiplatelets
CPT/HCPCS: 36415; 37226; 71045; 75635; 75710; 80048; 80051; 80053; 80076; 80197; 80202; 81003; 82024; 82088; 82436; 82533; 82570; 82728; 82962; 83036; 83540; 83550; 83735; 83930; 83935; 84100; 84132; 84133; 84300; 84439; 84443; 85025; 86376; 86705; 86709; 86803; 87340; 87426; 93005; 93306; 97166; 99291; A6261; C1725; C1760; C1769; C1876; C1887; C1893; C1894; J1644; J1650; J1720; J1815; J2250; J2543; J3010; J3370; J3475; J3490; J7030; J7060; J7507; J7512; J7517; L1830; Q9967

== ENCOUNTER → 2022-12-20 | Day surgery (SDC) | payer MEDICARE, MEDICAID ==
[~2022-12-20] VITALS: Ht 167.6 cm; Wt 79.4 kg
[~2022-12-20] MED LIST changes: +BUPIVACAINE HCL/PF 0.5% (5MG/ML) 10ML ONE; +DEXAMETHASONE 4MG/ML 1ML VIAL ONE; +FENTANYL CITRATE/PF 50MCG/ML 2ML VIAL ONE; +LIDOCAINE HCL 1% 10 MG/ML 10ML VIAL ONE; +METOCLOPRAMIDE HCL 10MG/2ML VIAL ONE; +POLYMYXIN B SULFATE 500000 UNITS/VIAL ONE; +PROPOFOL 200MG/20ML VIAL IV ONE; +SODIUM CHLORIDE 0.9% 1,000 ML IV SCH; +VANCOMYCIN HCL 1 GM/VIAL ONE
== END | disposition home or self-care (01) ==
LOC: OR 06:00
PROVIDERS: ATTEND Podiatrist Foot & Ankle Surgery
DX: M86.8X7 Other osteomyelitis, ankle and foot (principal); I10 Essential (primary) hypertension; E11.9 Type 2 diabetes mellitus without complications; E78.00 Pure hypercholesterolemia, unspecified; I73.9 Peripheral vascular disease, unspecified; Z79.899 Other long term (current) drug therapy; Z98.890 Other specified postprocedural states; Z79.82 Long term (current) use of aspirin; Z79.4 Long term (current) use of insulin; Z82.49 Family history of ischemic heart disease and other diseases of the circulatory system; Z20.822 Contact with and (suspected) exposure to COVID-19
CPT/HCPCS: 28825; 82962; 87070; 87075; 87205; 87426; 88304; 88311; A4217; C9803; J2704; J3370; J3490; Z7610; J1100; J2765; J3010